=== PATIENT | male | born 1955 | race Caucasian/White ===

== ENCOUNTER 2016-08-27 08:13 | Emergency (ER) | payer MEDICARE, MEDICAID ==
[2016-08-27] MEDS ORDERED: ALBUTEROL/IPRATROPIUM 2.5/0.5 MG 3 ML/EACH DOSE ONE ×2 (08:40→09:42)
[2016-08-27] MEDS ORDERED: AZITHROMYCIN 250 MG TABLET ONE (08:57)
[2016-08-27] MEDS ORDERED: DEXAMETHASONE SOD PHOS 10 MG/1 ML VIAL ONE (08:58)
[2016-08-27 09:09] LABS: ABSOLUTE NEUTROPHIL COUNT 7.5 K/mm3 (1.8-7.7); BASO # 0.1 K/mm3 (0.0-0.2); BASO % 0.6 % (0.2-1.0); EOS # 0.3 (0.0-0.5); EOS % 2.8 % (0.9-2.9); HEMATOCRIT 43.9 % (32.0-52.0); HEMOGLOBIN 14.2 gm/l (14.0-18.0); IMM NEUT% 0.3 % (0-1); LYMPH % 18.6 % (15-45); MEAN CELL VOLUME 90.9 fl (80.0-94.0); MEAN CORPUSCULAR HEMOGLOBIN 29.4 pg (27.0-31.0); MEAN CORPUSCULAR HGB CONC 32.3 g/dl (33.0-37.0); MEAN PLATELET VOLUME 9.5 fl (7.4-10.4); MONO # 0.9 (0.0-0.8); MONO % 8.1 % (4-12); NEUT % 69.6 % (43-75); PLATELET COUNT 244 K/mm3 (130-400); RED CELL DISTRIBUTION WIDTH 13.4 % (11.5-14.5)
--- NOTE | 2016-08-27 09:15 | RAD ---
Exam: Two-view chest COMPARISON: None INDICATION: Dyspnea for 3 days. COPD. Findings: PA and lateral views of the chest were obtained. Cardiac silhouette is mildly enlarged. There is diffuse prominence of the of the bronchovascular markings, however there is no pulmonary edema, focal airspace disease or pleural effusion. There is a compression fracture at T9 which is is of uncertain chronicity and lack of comparisons but this is presumably chronic. Bones chest wall otherwise unremarkable. IMPRESSION: Mild cardiomegaly and diffuse prominence of the bronchovascular markings, however no acute pulmonary process is identified.
[2016-08-27 09:18] LABS: CALCIUM 9.1 mg/dL (8.6-10.3)
[2016-08-27] MEDS ORDERED: IPRATROPIUM BROMIDE 0.5 MG/2.5 ML DOSE ONE (10:24)
[2016-08-27] MEDS ORDERED: ALBUTEROL SULFATE 5MG/ML INHALANT 20 ML BOT ONE (10:24)
== END 2016-08-27 12:01 | disposition home or self-care (01) ==
LOC: ED 08:13
DX: J44.1 Chronic obstructive pulmonary disease with (acute) exacerbation (principal); E11.9 Type 2 diabetes mellitus without complications; I10 Essential (primary) hypertension; F17.210 Nicotine dependence, cigarettes, uncomplicated
CPT/HCPCS: 85025; 80048; 71020; 94640 ×2; 94644; 99284 ×2; 96374; 93005; J7645; J1100; A9270

== ENCOUNTER 2016-09-02 10:37 | Inpatient (IN) | payer MEDICARE, MEDICAID ==
[2016-09-02] MEDS ORDERED: ALBUTEROL/IPRATROPIUM 2.5/0.5 MG 3 ML/EACH DOSE ONE (10:59)
[2016-09-02 11:29] LABS: URINE APPEARANCE CLEAR; URINE BILIRUBIN NEGATIVE (NEGATIVE); URINE BLOOD 1+ (NEGATIVE); URINE COLOR YELLOW; URINE GLUCOSE (UA) NEGATIVE (NEGATIVE); URINE LEUKOCYTE ESTERASE NEGATIVE (NEGATIVE); URINE NITRITE NEGATIVE (NEGATIVE); URINE PROTEIN 3+ (NEGATIVE); URINE UROBILINOGEN NORMAL (0-1 mg/dl)
[2016-09-02 11:30] LABS: ABSOLUTE NEUTROPHIL COUNT 8.4 K/mm3 (1.8-7.7); BASO # 0.1 K/mm3 (0.0-0.2); BASO % 0.4 % (0.2-1.0); EOS # 0.2 (0.0-0.5); EOS % 1.3 % (0.9-2.9); HEMATOCRIT 43.4 % (32.0-52.0); HEMOGLOBIN 13.4 gm/l (14.0-18.0); IMM NEUT # 0.1 K/mm3 (0-0.2); IMM NEUT% 0.6 % (0-1); LYMPH # 2.1 (1.0-4.8); LYMPH % 17.7 % (15-45); MEAN CELL VOLUME 93.3 fl (80.0-94.0); MEAN CORPUSCULAR HEMOGLOBIN 28.8 pg (27.0-31.0); MEAN CORPUSCULAR HGB CONC 30.9 g/dl (33.0-37.0); MEAN PLATELET VOLUME 9.9 fl (7.4-10.4); MONO # 1.1 (0.0-0.8); MONO % 9.1 % (4-12); NEUT % 70.9 % (43-75); PLATELET COUNT 242 K/mm3 (130-400); RED CELL DISTRIBUTION WIDTH 13.8 % (11.5-14.5)
[2016-09-02 11:40] LABS: URINE BACTERIA TRACE; URINE EPITHELIAL CELLS FEW /hpf; URINE WBC RARE /hpf
[2016-09-02 11:52] LABS: ALB/GLOB RATIO 1.1 (>1.0); ALBUMIN 3.4 gm/dL (3.5-5.7); CALCIUM 8.4 mg/dL (8.6-10.3); MAGNESIUM 1.8 mg/dL (1.9-2.7)
--- NOTE | 2016-09-02 11:52 | RAD ---
Exam: 4 view right knee COMPARISON: None INDICATION: Pain post fall. FINDINGS: AP, lateral and bilateral AP oblique views of the right knee were obtained. Small to moderate joint effusion is present. Alignment is normal. No acute fracture is identified. There is mild tricompartment osteophyte formation, with mild medial compartment joint space narrowing. IMPRESSION: Small moderate joint effusion, however no acute osseous abnormality is identified within the right knee.
--- NOTE | 2016-09-02 12:35 | CT ---
Exam: CT head without contrast COMPARISON: None INDICATION: Ground-level fall versus syncope with loss of consciousness. TECHNIQUE: CT examination of the head was obtained without contrast. FINDINGS: There is no acute intracranial hemorrhage. There is no abnormal intra or extra-axial fluid collection. Focal sulcal prominence is identified within the posterior left frontal high convexity which may be related to remote infarct/encephalomalacia. Cortical reina-white matter differentiation is otherwise maintained and there is no mass effect or midline shift. There is a focal area of decreased density lateral to the left caudate head which could potentially reflect an old lacunar infarct. Similar finding is seen within the inferior basal ganglia on the right either remote infarct versus dilated perivascular space.. Ventricles are normal in size. There is no depressed skull fracture. No definite scalp contusion is seen although there is a subtle focus of increased density within the soft tissues posteriorly just to the right of midline. Minor mucosal thickening is seen within the paranasal sinuses without significant intrasinus fluid to suggest acute sinus pathology. Mastoid air cells are well aerated. IMPRESSION: No acute intracranial hemorrhage or CT evidence for acute ischemia. Query old left frontal cortical infarct and possible old lacunar infarcts. Findings discussed with Dr. Rizo 1229 hours 09/02/2016.
[2016-09-02] MEDS ORDERED: LACTATED RINGERS 1,000 ML ONE (12:37)
[2016-09-02] MEDS ORDERED: PREDNISONE 20 MG TABLET ONE (12:37)
[2016-09-02] MEDS ORDERED: MENTHOL/CETYLPYRD 1 EACH LOZENGE PO PRN (13:26)
[2016-09-02] MEDS ORDERED: SODIUM CHLORIDE 0.9% 100 ML IV PRN (13:26)
[2016-09-02] MEDS ORDERED: BISACODYL 10 MG SUP PR PRN (13:26)
[2016-09-02] MEDS ORDERED: BISACODYL 5 MG TABLET.EC PO PRN (13:26)
[2016-09-02] MEDS ORDERED: BLISTEX LIPSTICK 1 EACH TP PRN (13:26)
[2016-09-02] MEDS ORDERED: ACETAMINOPHEN 325 MG TABLET PO PRN (13:26)
[2016-09-02] MEDS ORDERED: MAGNESIUM HYDROXIDE 30 ML UDCUP PO PRN (13:26)
[2016-09-02 14:26] VITALS: BMI 38.2
[2016-09-02] MEDS ORDERED: LABETALOL HCL 5 MG/ML 20ML VIAL IV ONE (14:42)
[2016-09-02] MEDS ORDERED: ASPIRIN (UNCOATED) 325 MG TABLET PO ONE (14:43)
[2016-09-02] MEDS: Magnesium Oxide 400 MG TABLET PO SCH ×3 (15:18→21:39)
[2016-09-02] MEDS ORDERED: FUROSEMIDE 20 MG/2 ML VIAL IV ONE (15:28)
[2016-09-02] MEDS: ALBUTEROL/IPRATROPIUM 2.5/0.5 MG 3 ML/EACH DOSE NEB SCH ×2 (15:59→20:31)
[2016-09-02 16:54] LABS: A1C-GLYCOHEMOGLOBIN 0.5 g/dl; HEMOGLOBIN-GLYCO 13.3 g/dl
--- NOTE | 2016-09-02 17:34 | HP ---
JOSE ANDERS [id number] DATE OF ADMISSION: September 02, 2016 CHIEF COMPLAINT: Syncope. HISTORY OF PRESENT ILLNESS: The patient is a 61-year-old male with a past medical history significant for untreated hypertension, untreated diabetes, and chronic obstructive pulmonary disease which has been severe who was brought to the [facility] Emergency Department by ambulance today because of severe right knee pain and a syncopal episode which occurred last night. He lives in a mobile home on his nephew's property. The motor home is heated with a propane heater. This patient states the heater is designed with adequate ventilation and came with the mobile home. He is not concerned about carbon monoxide exposure. He reports last night he was warming himself in front of the heater and woke up on the ground. He was standing at the time, and when he woke up he was on the grand and he had severe right knee pain. He believes he was unconscious for a couple of hours. He has been unable to bear weight on his right knee due to the pain. He had an elevated troponin level and severe hypertension in the emergency department. He is a poor historian. He was referred to the hospitalist service for observation. REVIEW OF SYSTEMS: He denies any fevers or chills. He has had no upper respiratory symptoms but he has had chronic cough, chronic dyspnea and chronic wheezing. He was seen in the emergency department on August 27, 2016 for a chronic obstructive pulmonary disease exacerbation. He was given a single dose of Zithromax and Decadron and sent home. He recently established care with a provider in [place], but has not been prescribed any new medication. He reports his breathing is chronically bad and it has been a little bit worse in the last week. He denies any chest pain. He has had no change in his lower extremity edema. He denies any palpitations. He reports he has been having a lot of trouble sleeping. He gets short of breath at night. He has been having some frequent urination. He reports he has not slept for several days, and he wonders if he just fell asleep on his feet. He denies any nausea, vomiting, diarrhea or constipation. He has some chronic back pain. He has some chronic paresthesias in both feet which he attributes to degenerative disc disease. He reports he gets frequent urinary urgency and frequent urination whenever he gets a chronic obstructive pulmonary disease exacerbation, but it seems to get better when his breathing gets better. He denies any recent hospitalizations. PAST MEDICAL HISTORY: Is significant for: 1. Chronic essential hypertension, untreated. 2. He has adult onset diabetes, also untreated or just diet controlled. 3. He has chronic obstructive pulmonary disease and states he is on disability because of this. 4. He denies any other chronic medical problems. 5. He is a hostile and poor historian. PAST SURGICAL HISTORY: Negative for any prior surgeries. He reports he did have a fractured right femur in 1970 but did not require surgery. ALLERGIES: NO KNOWN DRUG ALLERGIES. CURRENT MEDICATIONS: Consist of: 1. Albuterol HFA inhaler which he takes two to four puffs every four hours as needed for wheezing. 2. He has a nebulizer at home but he has not been using it because he has no medicine for it. 3. He has been taking Advil 600 mg every four to six hours as needed for pain. FAMILY HISTORY: Unremarkable. SOCIAL HISTORY: He lives alone in a motor home on his nephew's property in [place]. He has been on disability because of chronic obstructive pulmonary disease for a number of years. He has a 40 pack-year history of smoking. He has been trying to cut down on his smoking recently. He has used some marijuana in the past but denies any other street drug use and drinks alcohol socially. He is single, and he has no children. His primary care provider he could not identify, but we were able to track it down. It is Clarke Archuleta.Javier in [place]. PHYSICAL EXAMINATION: VITAL SIGNS: Temperature is 98.5, pulse 93, blood pressure 201/139, respirations 20, oxygen saturation 94% on room air. Body mass index is 38. Weight is 120.9 kilograms. GENERAL: This is an obese male in no acute distress. HEENT: Exam is unremarkable. CHEST: Lungs reveal scattered wheezes. CARDIOVASCULAR: Exam reveals a regular rate and rhythm without a murmur. ABDOMEN: Obese, soft, nontender, nondistended with positive bowel sounds. EXTREMITIES: Show chronic venous stasis skin changes in both lower extremities. He has 1+ pitting edema in both lower extremities. He has diminished peripheral pulses in both feet estimated at 1+ to barely palpable. No ulcerations are identified. His skin is intact but his extremities are cold. DIAGNOSTIC IMAGING STUDIES: 1. He had a chest x-ray performed on August 27, 2016 showing some coarsened bronchovascular markings and mild cardiomegaly, but there was no pulmonary edema identified. 2. CT of the brain performed today shows no acute hemorrhage. There is possible old left frontal cortical infarct, possible old lacunar infarcts but no acute abnormalities are seen. 3. X-ray of the right knee shows a small to moderate joint effusion but no acute fracture is seen. LABORATORY STUDIES: His laboratory studies included a CBC with a white count of 11.8 and a hemoglobin of 13.4. Platelet count is 242,000. Chemistry profile this morning showed a sodium of 141, potassium 5.0, BUN 28, creatinine 1.4, glucose was 108, magnesium was slightly low at 1.8, total bilirubin 1.2, AST 27, ALT 27. Troponin I was elevated at 0.08, total CPK was normal at 93 but CK-MB was elevated at 9.6. A hemoglobin A1c is pending. A followup troponin and other cardiac enzymes are also pending. ELECTROCARDIOGRAM: A 12-lead electrocardiogram performed in the emergency department showed sinus rhythm with marked left axis deviation. There is also evidence of a right bundle branch block. No acute ST or T wave changes are seen. ASSESSMENT: 1. Patient has had a syncopal episode. 2. He has evidence of severe hypertension. 3. He has an acute chronic obstructive pulmonary disease exacerbation with possible bronchitis. 4. He has chronic glucose intolerance versus adult onset diabetes. 5. He has obesity which complicates his care. 6. He has mild hypomagnesemia which is being replaced. PLAN: 1. He is placed under observation on the medical/surgical unit. 2. We will get serial cardiac enzymes. 3. He will be on telemetry. 4. We will get an echocardiogram. 5. He was given labetalol times one and we will start him on Norvasc for blood pressure control. 6. Further treatment and recommendations will depend on his hospital course. cc: Aleena Archuleta
[2016-09-02] MEDS ORDERED: SODIUM CHLORIDE 0.9% FLUSH 10 ML ONE (19:07)
[2016-09-02] MEDS ORDERED: IV START KIT ONE (19:08)
[2016-09-02] MEDS: DOCUSATE SODIUM 100 MG CAPSULE PO SCH (21:39)
[2016-09-02] MEDS: AMLODIPINE BESYLATE 5 MG TABLET PO SCH (21:39)
[2016-09-02] MEDS: GUAIFENESIN 600 MG TABLET.DR PO SCH (21:40)
[2016-09-02] MEDS: ALBUTEROL NEB 2.5 MG/3 ML VIAL.NEB NEB PRN (23:59)
[2016-09-03] MEDS: ALBUTEROL NEB 2.5 MG/3 ML VIAL.NEB NEB PRN ×2 (02:10→06:09)
[2016-09-03 06:20] LABS: ABSOLUTE NEUTROPHIL COUNT 11.1 K/mm3 (1.8-7.7); BASO % 0.2 % (0.2-1.0); EOS % 0.1 % (0.9-2.9); HEMATOCRIT 41.5 % (32.0-52.0); IMM NEUT # 0.1 K/mm3 (0-0.2); IMM NEUT% 0.8 % (0-1); MEAN CELL VOLUME 91.8 fl (80.0-94.0); MEAN CORPUSCULAR HEMOGLOBIN 28.8 pg (27.0-31.0); MEAN CORPUSCULAR HGB CONC 31.3 g/dl (33.0-37.0); MEAN PLATELET VOLUME 10.3 fl (7.4-10.4); MONO % 6.8 % (4-12); NEUT % 78.1 % (43-75); PLATELET COUNT 225 K/mm3 (130-400); RED CELL DISTRIBUTION WIDTH 13.7 % (11.5-14.5)
[2016-09-03 06:24] LABS: CALCIUM 7.9 mg/dL (8.6-10.3); MAGNESIUM 1.8 mg/dL (1.9-2.7)
[2016-09-03] MEDS: ALBUTEROL/IPRATROPIUM 2.5/0.5 MG 3 ML/EACH DOSE NEB SCH ×4 (08:40→20:28)
[2016-09-03] MEDS ORDERED: PNEUMOCOCCAL 23-VAL P-SAC VAC 0.5 ML VIAL IM V ONE (09:00)
[2016-09-03] MEDS: GUAIFENESIN 600 MG TABLET.DR PO SCH ×2 (09:28→20:49)
[2016-09-03] MEDS: DOCUSATE SODIUM 100 MG CAPSULE PO SCH ×2 (09:28→20:49)
[2016-09-03] MEDS: Magnesium Oxide 400 MG TABLET PO SCH ×3 (09:28→20:49)
--- NOTE | 2016-09-03 10:26 | PDOC43 ---
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 Patient reports breathing a bit better, would like some more nebulizer tx. Notes urinary sx is not so much polyuria, but rather urgency, small voids. Knee is feeling better, walked some, but still notes limited activity tolerance. - Objective Vital Signs Temperature 98.0 F 09/03/16 08:00 Pulse Rate 101 09/03/16 08:40 Respiratory Rate 22 09/03/16 08:40 Blood Pressure 150/98 09/03/16 08:00 O2 Saturation by Pulse Oximetry 93 09/03/16 08:40 Oxygen Delivery Method Room Air Oxygen Flow Rate 0 Vital Signs Last 12 Hours Temp Pulse Resp BP Pulse Ox 09/03/16 08:40 101 22 93 09/03/16 08:00 98.0 F 96 20 150/98 92 09/03/16 06:09 91 18 95 09/03/16 02:10 91 22 95 09/03/16 00:35 16 09/03/16 00:20 89 16 174/96 95 09/03/16 00:02 91 14 172/90 95 09/03/16 00:00 85 28 95 09/02/16 23:44 97.8 F 90 22 94 Intake and Output 09/01/16 09/02/16 09/03/16 23:59 23:59 23:59 Intake Total 920 Output Total 825 Balance 95 Intake & Output 09/02/16 09/03/16 09/03/16 23:59 07:59 15:59 Intake Total 920 Output Total 825 Balance 95 Intake: PO Intake 720 IV Fluids 200 Output: Void 825 General: Other (sleeping, snoring, wakes easily. Centrally Obese (BMI 38.2),) HEENT: Atraumatic Lungs: Other (marked wheezing bilat, slow air movement bilat.) Cardiovascular: Regular Rate and Rhythm (distant, hard to hear) Abdomen: Soft, Normal Bowel Sounds, Non-Distended, Other (obese) Rectal Exam: Other (only base of prostate reached, not jung tender or boggy.) Extremities: Edema (1-2+ bilat.) Skin: Normal Color Neurological: Normal Speech Psych/Mental Status: Other (unusual affect.) Laboratory 09/03/16 05:30 09/03/16 05:30 09/03/16 09/02/16 05:30 15:05 RBC 4.52 L MCHC 31.3 L BUN 34 H Estimated GFR 41 L Calcium 7.9 L Magnesium 1.8 L CK-MB (CK-2) 9.0 H Troponin I 0.07 H 0.07 H B-Natriuretic Peptide 572 H Current Medications: Current meds reviewed in EMR. Active Medications Acetaminophen (Tylenol) 650 mg PO Q6H PRN PRN Reason: Pain or Temperature > 100.5 F Albuterol Sulfate (Ventolin Inhalation Solution (Dose)) 2.5 mg NEB Q4H PRN PRN Reason: Wheezing Last Admin: 09/03/16 06:09 Dose: 2.5 mg Albuterol/Ipratropium (Duoneb) 3 ml NEB QID PENDING SALE TO [facility] Last Admin: 09/03/16 08:40 Dose: 3 ml Amlodipine Besylate (Norvasc) 5 mg PO QPM PENDING SALE TO [facility] Last Admin: 09/02/16 21:39 Dose: 5 mg Benzocaine/Menthol (Cepacol) 1 each PO PRN PRN PRN Reason: Sore Throat Bisacodyl (Dulcolax) 10 mg SD DAILY PRN PRN Reason: Constipation Bisacodyl (Dulcolax) 5 mg PO DAILY PRN PRN Reason: Constipation Docusate Sodium (Colace) 100 mg PO BID PENDING SALE TO [facility] Last Admin: 09/03/16 09:28 Dose: 100 mg Guaifenesin (Mucinex) 600 mg PO BID PENDING SALE TO [facility] Last Admin: 09/03/16 09:28 Dose: 600 mg Sodium Chloride (Sodium Chloride 0.9%) 100 mls @ 25 mls/hr IV PRN PRN PRN Reason: Flush Magnesium Hydroxide (Milk Of Magnesia) 30 ml PO DAILY PRN PRN Reason: Constipation Magnesium Oxide (Magnesium Oxide) 800 mg PO TID PENDING SALE TO [facility] Last Admin: 09/03/16 09:28 Dose: 800 mg Petrolatum/Paraffin/Mineral Oil (Blistex) 1 each TP PRN PRN PRN Reason: Dry and/or chapped lips Sodium Chloride (Normal Saline 10ml Flush) 10 - 50 ml IV PRN PRN PRN Reason: IV Flush Last Admin: 09/02/16 15:37 Dose: 10 ml Sodium Chloride (Normal Saline 10ml Flush) 10 ml IV Q8HR SURYA Last Admin: 09/03/16 09:28 Dose: 10 ml - Problems: Assessment/Plan (1) Hypertensive urgency Status: AcuteAssessment/Plan: Selected Entries 09/02/16 09/02/16 09/02/16 13:26 16:30 19:51 Blood Pressure 201/139 181/109 157/102 09/03/16 09/03/16 09/03/16 00:02 00:20 08:00 Blood Pressure 172/90 174/96 150/98 BP improved, would not seek further aggressive BP lowering currently. Continue amlodipine. Starting Lasix for suspected CHF; Did get labetalol earlier. Suspect underlying essential HTN, but suspected COPD/hypoxia could play a role (2) Syncope Status: AcuteAssessment/Plan: Echo planned. Check CXR. Anticipate checking ambulation with PT/OT. (3) COPD (chronic obstructive pulmonary disease) Qualifiers: COPD type: unspecified COPD Qualifier Code: (J44.9) Chronic obstructive pulmonary disease, unspecified Status: ChronicAssessment/Plan: Marked wheezing bilat. Continue nebs. Anticipate add Bactrim to see if helpful for respiratory status Also try to address CHF, which may be playing a role as well. Await echo. (4) Knee effusion Qualifiers: Laterality: unspecified laterality Qualifier Code: (M25.469) Effusion, unspecified knee Status: AcuteAssessment/Plan: Patient reports feeling better, ambulating some. (5) HI (acute kidney injury) Status: SuspectedAssessment/Plan: Cr 1.4->1.7, 3+ protein; uncertain if acute and due to hypertensive urgency ( which would suggest hypertensive emergency) But seems more likely to be chronic, due to un/undertreated primary hypertension. Continue to monitor, avoid significant HTN. (6) Urinary urgency Status: SuspectedAssessment/Plan: Patient reports having low volumes, but urgency on wakening, difficulty getting to bathroom. Prostate exam difficult; will try to address possibility of a low grade prostatitis, but also improve respiratory status, ambulatory status. UA unrem except for protein 3+. (7) CHF (congestive heart failure) Qualifiers: Congestive heart failure type: unspecified congestive heart failure type Congestive heart failure chronicity: unspecified congestive heart failure chronicity Qualifier Code: (I50.9) Heart failure, unspecified Status: SuspectedAssessment/Plan: Pt with wheezing, elevated BNP. Check CXR, echo, hope to clarify whether systolic or diastolic, and determine duration (chronic vs acute) Lasix seemed helpful. Will continue on PO. Hold on ZAN/ARB at this time while watching creatinine (increased today). Consider Coreg/other beta tawana. (8) Sleep apnea Qualifiers: Sleep apnea type: unspecified type Qualifier Code: (G47.30) Sleep apnea , unspecified Status: SuspectedAssessment/Plan: Anticipate check continuous oximetry. VTE Prophylaxis: Mechanical Disposition: monitor, reassess in am, consider for return to home with family (mobile home on brother's property)
--- NOTE | 2016-09-03 11:20 | RAD ---
09/03/2016 11:17 AM CHEST-AP BEDSIDE History: Cough and dyspnea Comparison: 08/27/2016 Findings: Single AP view of the chest is obtained. The lungs are clear with out effusion or pneumothorax. The previously seen coarseness to the interstitium is not as well-visualized on today's study. The cardiomediastinal silhouette enlarged but stable. The osseous structures are intact.. EKG leads overlie the chest. IMPRESSION: Continued cardiomegaly though prominence to the lung markings has decreased in comparison to prior exam.
[2016-09-03] MEDS: FUROSEMIDE 20 MG TABLET PO SCH (13:46)
[2016-09-03] MEDS: POTASSIUM CHLORIDE 8 MEQ TABLET.DR PO SCH (13:46)
[2016-09-03] MEDS: SULFAMETHOXAZOLE 800 MG/TRIMETHOPRIM 160 MG TABLET PO SCH ×2 (13:46→20:50)
--- NOTE | 2016-09-03 16:24 | US ---
Exam: Bilateral Carotid Artery Ultrasound Comparison: None. History: Syncope. Carotid duplex criteria: Measurement of carotid stenosis is based on velocity parameters that correlate the residual internal carotid diameter with [place] Symptomatic Carotid Endarterectomy Trial (NASCET)- based stenosis levels. Grayscale and Doppler interrogation was utilized. Findings: Examination was limited due to patient's breathing intolerance. No significant plaque formation is seen on either side. Peak systolic velocities are as follows, in cm/sec: RIGHT: Common carotid artery proximal/mid: 63 Common carotid artery distally: 57 Bulb: 49 Proximal internal carotid artery: 34 Mid internal carotid artery: 30 Distal internal carotid artery: 26 External carotid artery: 65 ICA/CCA ratio: 0.6. Antegrade right vertebral artery flow is present. LEFT: Common carotid artery proximal/mid: 52 Common carotid artery distally: 50 Bulb: 45 Proximal internal carotid artery: 114 Mid internal carotid artery: 99 Distal internal carotid artery: 88 External carotid artery: 52 ICA/CCA ratio: 2.3. Antegrade left vertebral artery flow is present. Impression: 1. No evidence of hemodynamically significant stenosis within either carotid artery. 2. No significant plaque formation within either carotid artery. 3. Antegrade flow within the vertebral arteries.
[2016-09-03] MEDS: AMLODIPINE BESYLATE 5 MG TABLET PO SCH (20:50)
[2016-09-04] MEDS: ALBUTEROL NEB 2.5 MG/3 ML VIAL.NEB NEB PRN ×2 (00:32→03:58)
--- NOTE | 2016-09-04 01:01 | DS ---
JOSE ANDERS [id number] DATE OF ADMISSION: 09/02/2016 DATE OF DISCHARGE: 09/04/2016 DISCHARGE DIAGNOSES: 1. Reported syncope, etiology not clear. 2. Severe hypertension, with potential evidence of end organ damage, with 3+ protein noted and a creatinine of 1.7 and BNP of 572. 3. Reported diet-controlled diabetes mellitus, with an A1C of 5.7. 4. COPD, on disability. 5. Knee effusion, improved. 6. CT evidence of suspected old left frontal cortical infarct and possible old lacunar infarcts. 7. Suspected acute on chronic kidney disease, with a creatinine of 1.7 and 3+ proteinuria. 8. History of urinary urgency, with difficulty getting to the bathroom. 9. Combined systolic and diastolic congestive heart failure, with cor pulmonale. LVEF 40%, RVSP 60-65 mmHg, mild RV dilatation. REASON FOR ADMISSION: The patient is a 61-year-old male who was brought to [facility] by ambulance because of severe right knee pain and reported episode of syncope. He lives in a mobile home on his nephew's property. He had reported he was warming himself in front of the heater and then later woke-up on the ground, and felt that he hurt his right knee. He does not know how long he may have been unconscious. He was noted to have a marked elevated systolic blood pressure and a borderline elevated troponin level at 0.08, with a normal CK of 86. His white blood cell count was 11.6, hemoglobin 13.4 and platelets 242. Chemistry profile; sodium 141, potassium 5.0, BUN of 28, creatinine 1.4, glucose 108, magnesium 1.8 and bilirubin 1.2. Liver enzymes normal. Urinalysis; specific gravity 1.020, 3+ protein, 1-2 red cells, rare white cells and few epithelial cells. Imaging performed of the brain showed no acute intracranial hemorrhage or CT evidence of acute ischemia, old left frontal cortical infarct and possible old lacunar infarcts. A chest x-ray showed cardiomegaly, with some decrease in lung markings compared to 08/27/2016. A knee x-ray showed small moderate joint effusion. No acute osseous abnormality in the right knee. On the afternoon of 09/03/2016, the patient was upset because the nurse had talked to him about what he perceived to be going to the bathroom, and he wished to leave against medical advice. This was discussed with him, and although he initially had intended to leave, he chose to stay, and so at this time the discharge was cancelled. His troponins have remained normal. CK-MB mildly elevated at 9.6. CK of 93. A1C was 5.7. His follow-up creatinine edged-up from 1.4 to 1.8, with a potassium increased to 5.1; blood sugars remained stable at 117. He did receive some magnesium for his low magnesium. He had marked elevation of blood pressure on admission as high as 201/139 and received amlodipine, and had a fairly good response to this, and by the afternoon it was 131/101. He also received Lasix and potassium as well. He was started on Bactrim DS for consideration of a low-grade prostatitis, might be playing a factor in his urinary urgency and it could also potentially help his COPD. By morning 09/04/16, patient reported feeling much better than on admission, and was amenable to returning home. Patient's echocardiogram 09/03/16 showed: Mild to Moderate LV dilatation, LVEF 40%, moderate left atrial enlargement, mild to moderate mitral valve regurgitation, RVSP 60-65 mmHg, mild RV dilatation, Grade 2 diastolic dysfunction. Normal aortic root, no pericardial effusion. DISCHARGE MEDICATIONS: Current estimated discharge medications were going to be: 1. Albuterol two puffs inhaled every three hours as needed. 2. Amlodipine 5 mg by mouth every P.M. 3. Lasix 20 mg daily. 4. Potassium chloride 8 mEq by mouth daily. 5. Bactrim DS one by mouth twice a day times two weeks. DISCHARGE FOLLOW-UP: Follow-up was to be with his primary care doctor who he has difficulty remembering, but appears to be Alexandra Dutton in [place], a nurse practitioner. He is to follow up with Alexandra Dutton regardin. CHF 2. Respiratory status 3. Renal status, including potassium 4. Blood pressure 5. Urinary difficulty and incontinence DISCHARGE DIET: Recommended to be a cardiac diet.
[2016-09-04 05:54] LABS: ABSOLUTE NEUTROPHIL COUNT 8.8 K/mm3 (1.8-7.7); BASO # 0.1 K/mm3 (0.0-0.2); BASO % 0.5 % (0.2-1.0); EOS # 0.3 (0.0-0.5); EOS % 2.6 % (0.9-2.9); HEMATOCRIT 42.5 % (32.0-52.0); HEMOGLOBIN 13.2 gm/l (14.0-18.0); IMM NEUT # 0.1 K/mm3 (0-0.2); IMM NEUT% 0.6 % (0-1); LYMPH # 2.1 (1.0-4.8); LYMPH % 16.5 % (15-45); MEAN CELL VOLUME 93.2 fl (80.0-94.0); MEAN CORPUSCULAR HEMOGLOBIN 28.9 pg (27.0-31.0); MEAN CORPUSCULAR HGB CONC 31.1 g/dl (33.0-37.0); MEAN PLATELET VOLUME 9.9 fl (7.4-10.4); MONO # 1.2 (0.0-0.8); MONO % 9.4 % (4-12); NEUT % 70.4 % (43-75); PLATELET COUNT 217 K/mm3 (130-400); RED CELL DISTRIBUTION WIDTH 14.1 % (11.5-14.5)
[2016-09-04 06:17] LABS: ALBUMIN 3.4 gm/dL (3.5-5.7)
[2016-09-04] MEDS: ALBUTEROL/IPRATROPIUM 2.5/0.5 MG 3 ML/EACH DOSE NEB SCH ×2 (07:37→12:00)
[2016-09-04] MEDS: POTASSIUM CHLORIDE 8 MEQ TABLET.DR PO SCH (08:39)
[2016-09-04] MEDS: SULFAMETHOXAZOLE 800 MG/TRIMETHOPRIM 160 MG TABLET PO SCH (08:39)
[2016-09-04] MEDS: GUAIFENESIN 600 MG TABLET.DR PO SCH (08:39)
[2016-09-04] MEDS: Magnesium Oxide 400 MG TABLET PO SCH (08:39)
[2016-09-04] MEDS: DOCUSATE SODIUM 100 MG CAPSULE PO SCH (08:39)
[2016-09-04] MEDS: FUROSEMIDE 20 MG TABLET PO SCH (08:39)
--- NOTE | 2016-09-04 11:12 | PDOC43 ---
- Subjective Chief Complaint: syncope, elevated BP Patient reports breathing doing much better. Slept ok, and noted only one accident yesterday. Feeling better. No new c/o. - Objective Vital Signs Temperature 97.9 F 09/04/16 07:00 Pulse Rate 90 09/04/16 07:35 Respiratory Rate 24 09/04/16 07:35 Blood Pressure 143/87 09/04/16 07:00 O2 Saturation by Pulse Oximetry 93 09/04/16 07:35 Oxygen Delivery Method Room Air Oxygen Flow Rate 0 Vital Signs Last 12 Hours Temp Pulse Resp BP Pulse Ox 09/04/16 07:35 90 24 93 09/04/16 07:00 97.9 F 99 21 143/87 93 09/04/16 03:58 92 20 94 09/04/16 03:00 98.0 F 89 22 132/88 95 09/04/16 01:00 22 09/04/16 00:32 94 28 96 09/03/16 23:10 98.0 F 92 132/90 94 09/03/16 23:05 98.2 F 60 18 118/60 96 Intake and Output 09/02/16 09/03/16 09/04/16 23:59 23:59 23:59 Intake Total 860 2820 Output Total 1000 1550 Balance -140 1270 General: Alert, Cooperative, Other (seems to be feeling better today) Lungs: No Clear to Auscultation Bilaterally (wheezing noted bilat, but improved , air movement better.) Cardiovascular: Regular Rate and Rhythm Abdomen: Soft, Normal Bowel Sounds, No Tenderness Extremities: Edema (2+ edema LE bilat.) Neurological: Normal Speech Psych/Mental Status: Normal Affect (appears to be feeling a bit better, but still sl irritable on waking.) Laboratory 09/04/16 05:30 09/04/16 05:30 09/04/16 09/03/16 05:30 20:49 RBC 4.56 L MCHC 31.1 L BUN 36 H Estimated GFR 39 L POC Capillary Glucose 124 H Calcium 8.0 L Total Bilirubin 1.1 H Albumin 3.4 L Current Medications: Current meds reviewed in EMR. Active Medications Acetaminophen (Tylenol) 650 mg PO Q6H PRN PRN Reason: Pain or Temperature > 100.5 F Albuterol Sulfate (Ventolin Inhalation Solution (Dose)) 2.5 mg NEB Q4H PRN PRN Reason: Wheezing Last Admin: 09/04/16 03:58 Dose: 2.5 mg Albuterol/Ipratropium (Duoneb) 3 ml NEB 08,12,16,20 [facility] Last Admin: 09/04/16 07:37 Dose: 3 ml Amlodipine Besylate (Norvasc) 5 mg PO QPM [facility] Last Admin: 09/03/16 20:50 Dose: 5 mg Benzocaine/Menthol (Cepacol) 1 each PO PRN PRN PRN Reason: Sore Throat Bisacodyl (Dulcolax) 10 mg W[place] DAILY PRN PRN Reason: Constipation Bisacodyl (Dulcolax) 5 mg PO DAILY PRN PRN Reason: Constipation Docusate Sodium (Colace) 100 mg PO BID [facility] Last Admin: 09/04/16 08:39 Dose: 100 mg Furosemide (Lasix) 20 mg PO DAILY [facility] Last Admin: 09/04/16 08:39 Dose: 20 mg Guaifenesin (Mucinex) 600 mg PO BID [facility] Last Admin: 09/04/16 08:39 Dose: 600 mg Sodium Chloride (Sodium Chloride 0.9%) 100 mls @ 25 mls/hr IV PRN PRN PRN Reason: Flush Magnesium Hydroxide (Milk Of Magnesia) 30 ml PO DAILY PRN PRN Reason: Constipation Magnesium Oxide (Magnesium Oxide) 800 mg PO TID [facility] Last Admin: 09/04/16 08:39 Dose: 800 mg Petrolatum/Paraffin/Mineral Oil (Blistex) 1 each TP PRN PRN PRN Reason: Dry and/or chapped lips Potassium Chloride (Klor-Con) 8 meq PO DAILY [facility] Last Admin: 09/04/16 08:39 Dose: 8 meq Sodium Chloride (Normal Saline 10ml Flush) 10 - 50 ml IV PRN PRN PRN Reason: IV Flush Last Admin: 09/02/16 15:37 Dose: 10 ml Sodium Chloride (Normal Saline 10ml Flush) 10 ml IV Q8HR [facility] Last Admin: 09/04/16 08:39 Dose: 10 ml Trimethoprim/Sulfamethoxazole (Septra Ds) 1 each PO BID [facility] Last Admin: 09/04/16 08:39 Dose: 1 each - Problems: Assessment/Plan (1) Hypertensive urgency Status: AcuteAssessment/Plan: BP improved, would not seek further aggressive BP lowering currently. Continue current regimen Started Lasix for suspected CHF; Did get labetalol earlier. Suspect underlying untreated essential HTN, but suspected COPD/hypoxia could also play a role (2) Syncope Qualifiers: Syncope type: unspecified Qualifier Code: (R55) Syncope and collapse Status: AcuteAssessment/Plan: Echo did not show significant valvular dz. Carotids unrem. Anticipate checking ambulation with PT/OT. (3) COPD (chronic obstructive pulmonary disease) Qualifiers: COPD type: unspecified COPD Qualifier Code: (J44.9) Chronic obstructive pulmonary disease, unspecified Status: ChronicAssessment/Plan: with pulmonary HTN, cor pulmonale Marked wheezing bilat. Continue nebs. Added Bactrim to see if helpful for respiratory status Also addressing CHF, which may be playing a role as well. (4) Knee effusion Qualifiers: Laterality: unspecified laterality Qualifier Code: (M25.469) Effusion, unspecified knee Status: AcuteAssessment/Plan: Patient reports feeling better, ambulating some. (5) HI (acute kidney injury) Status: SuspectedAssessment/Plan: Cr 1.4->1.7, 3+ protein; uncertain if acute and due to hypertensive urgency ( which would suggest hypertensive emergency) But seems more likely to be chronic, due to un/undertreated primary hypertension. Continue to monitor, avoid significant HTN, avoid hypotension. Mild hyperkalemia noted today, but was lower previously. Anticipate continue on low dose (8 mEq), while on Lasix. REquest pt follow up lab tests in the next week. (6) Urinary urgency Status: SuspectedAssessment/Plan: Patient reports having low volumes, but urgency on wakening, difficulty getting to bathroom. Prostate exam difficult; will try to address possibility of a low grade prostatitis, but also improve respiratory status, ambulatory status. UA unrem except for protein 3+. Bactrim started, will see if helpful (7) CHF (congestive heart failure) Qualifiers: Congestive heart failure type: combined Congestive heart failure chronicity: acute on chronic Qualifier Code: (I50.43) Acute on chronic combined systolic (congestive) and diastolic (congestive) heart failure Status: SuspectedAssessment/Plan: Pt with wheezing, elevated BNP. Appears systolic (LVEF 40%) and diastolic, suspect acute on chronic. Lasix seemed helpful. Will continue on PO. Hold on ZAN/ARB at this time while watching creatinine (increased). Consider Coreg/other beta tawana. (8) Sleep apnea Qualifiers: Sleep apnea type: unspecified type Qualifier Code: (G47.30) Sleep apnea , unspecified Status: SuspectedAssessment/Plan: oximetry did not show significant hypoxia at this time. VTE Prophylaxis: Mechanical Disposition: anticipate return to home with family (mobile home on brother's property)
[2016-09-04 11:23] VITALS: BP 135/88
== END 2016-09-04 12:15 | disposition home or self-care (01) | DRG 292 ==
LOC: ED 10:37 → INTOOBSV 13:17 → MS 13:17 → OBSVTOIN 09-03 11:02
PROVIDERS: ADMIT Family Medicine; ATTEND Family Medicine
DX: I13.0 Hypertensive heart and chronic kidney disease with heart failure and stage 1 through stage 4 chronic kidney disease, or unspecified chronic kidney disease (principal); E66.2 Morbid (severe) obesity with alveolar hypoventilation; J44.1 Chronic obstructive pulmonary disease with (acute) exacerbation; I50.30 Unspecified diastolic (congestive) heart failure; M25.469 Effusion, unspecified knee; E11.9 Type 2 diabetes mellitus without complications; Z68.38 Body mass index [BMI] 38.0-38.9, adult; E83.42 Hypomagnesemia; N18.9 Chronic kidney disease, unspecified; E11.22 Type 2 diabetes mellitus with diabetic chronic kidney disease; R39.15 Urgency of urination

== ENCOUNTER 2016-10-25 08:33 | Inpatient (IN) | payer MEDICARE, MEDICAID ==
[2016-10-25] MEDS ORDERED: METHYLPRED SOD SUCCINATE 125 MG VIAL ONE (08:41)
[2016-10-25] MEDS ORDERED: ALBUTEROL/IPRATROPIUM 2.5/0.5 MG 3 ML/EACH DOSE ONE (08:41)
[2016-10-25 08:52] LABS: VENOUS BLOOD GAS BASE EXCESS -1.1 mmol/L (-2.0-2.0); VENOUS BLOOD GAS HCO3 27.8 mmol/L (22.0-27.0)
[2016-10-25] MEDS ORDERED: ALBUTEROL NEB 2.5 MG/3 ML VIAL.NEB NEB ONE ×2 (08:58→13:46)
[2016-10-25 09:03] LABS: ABSOLUTE NEUTROPHIL COUNT 5.8 K/mm3 (1.8-7.7); BASO % 0.5 % (0.2-1.0); EOS # 0.2 (0.0-0.5); EOS % 2.4 % (0.9-2.9); HEMATOCRIT 51.8 % (32.0-52.0); HEMOGLOBIN 16.7 gm/l (14.0-18.0); IMM NEUT% 0.3 % (0-1); MEAN CELL VOLUME 86.2 fl (80.0-94.0); MEAN CORPUSCULAR HEMOGLOBIN 27.8 pg (27.0-31.0); MEAN CORPUSCULAR HGB CONC 32.2 g/dl (33.0-37.0); MEAN PLATELET VOLUME 9.9 fl (7.4-10.4); MONO # 0.9 (0.0-0.8); MONO % 9.8 % (4-12); PLATELET COUNT 232 K/mm3 (130-400); RED CELL DISTRIBUTION WIDTH 14.5 % (11.5-14.5)
[2016-10-25 09:17] LABS: ALB/GLOB RATIO 0.9 (>1.0); ALBUMIN 3.7 gm/dL (3.5-5.7); CALCIUM 8.7 mg/dL (8.6-10.3)
--- NOTE | 2016-10-25 10:06 | RAD ---
CHEST-AP BEDSIDE HISTORY: Worsening dyspnea and cough. COMPARISONS: 09/03/2016. FINDINGS: A single AP view of the chest was performed demonstrating normal-appearing soft tissue and bony structures. The heart size is stable. There is mild central vascular prominence of the appearance is similar to that seen on prior exam. No gross consolidation, effusion or pneumothorax is seen. The hilar and mediastinal structures are intact. IMPRESSION: 1. Stable borderline cardiomegaly with mild central vascular prominence.
[2016-10-25 11:12] LABS: CKMB 1.4 ng/ml (<4.3); TROPONIN I < 0.05 ng/ml (<0.05)
[2016-10-25 12:03] VITALS: BMI 38.8
[2016-10-25] MEDS ORDERED: BISACODYL 5 MG TABLET.EC PO PRN (12:30)
[2016-10-25] MEDS ORDERED: SODIUM CHLORIDE 0.9% 100 ML IV PRN (12:30)
[2016-10-25] MEDS ORDERED: ACETAMINOPHEN 325 MG TABLET PO PRN (12:30)
[2016-10-25] MEDS ORDERED: BISACODYL 10 MG SUP PR PRN (12:30)
[2016-10-25] MEDS ORDERED: MAGNESIUM HYDROXIDE 30 ML UDCUP PO PRN (12:30)
[2016-10-25] MEDS ORDERED: MENTHOL/CETYLPYRD 1 EACH LOZENGE PO PRN (12:30)
[2016-10-25] MEDS ORDERED: BLISTEX LIPSTICK 1 EACH TP PRN (12:30)
[2016-10-25] MEDS ORDERED: INSULIN ASPART (DOSE) 100 UNITS/1 ML SUB-Q PRN (12:38)
[2016-10-25] MEDS ORDERED: PUMP TUBING ONE (13:35)
[2016-10-25] MEDS: SODIUM CHLORIDE 0.9% 1,000 ML IV SCH ×2 (13:40→22:43)
[2016-10-25] MEDS ORDERED: ALBUTEROL NEB 2.5 MG/3 ML VIAL.NEB NEB SCH (14:00)
[2016-10-25 14:52] LABS: VENOUS BLOOD GAS BASE EXCESS -1.4 mmol/L (-2.0-2.0); VENOUS BLOOD GAS HCO3 24.6 mmol/L (22.0-27.0)
--- NOTE | 2016-10-25 15:02 | HP ---
JOSE ANDERS : 1955 DATE OF ADMISSION: October 25, 2016 CHIEF COMPLAINT: Shortness of breath. HISTORY OF PRESENT ILLNESS: Patient has a known history of chronic obstructive pulmonary disease and is a current smoker. He says he only smokes three or four cigarettes a day. However, over the last two to three days, he has had increasing shortness of breath and cough. There has been no increase in sputum production. As this progressed to where he had difficulty breathing this morning, he proceeded to the emergency department. In the emergency department he was noted to be tachypneic and tachycardic with wheezing. He was provided with nebulizer treatments in the emergency room and a dose of steroids. However, after two doses of albuterol, he became diaphoretic with increased tachypnea, and he was placed on BiPAP. With BiPAP therapy his tachycardia improved along with his tachypnea, and he became more comfortable with his breathing. Patient is being admitted to the hospital for ongoing chronic obstructive pulmonary disease exacerbation management. Patient does have an increasing cough but no increase in sputum production. He does have wheezing. He did not call his primary care physician because he felt that she would not be able to see him or Thursday when his symptoms worsened. He says he has been taking all of his medications as prescribed. He has not had any cold symptoms but he has been around people with kids that have colds. He denies any fever, chills, congestion, or sore throat. He did have an ear infection two weeks prior to this, however. He has been in the hospital on BiPAP before, most recently a month ago. He has never been intubated. REVIEW OF SYSTEMS: GENERAL: No fevers, chill. EENT: No throat pain, congestion, sore throat. Ear infection two weeks ago. CARDIOVASCULAR: He has chest pain from breathing heavy. No palpitations. RESPIRATORY: He has an increased rate of breathing, increased cough, wheezing. No sputum production. ABDOMEN: Sore from breathing. No nausea, vomiting or abdominal pain. GENITOURINARY: No difficulties with urination. MUSCULOSKELETAL: Muscle pain from breathing hard. NEUROLOGIC: No lightheadedness, dizziness. He does have numbness in his feet. ALLERGIES: NO KNOWN DRUG ALLERGIES. PAST MEDICAL HISTORY: 1. He has chronic benign essential hypertension. 2. Adult onset diabetes, diet controlled. 3. Chronic obstructive pulmonary disease. He is a smoker. 4. He has neuropathy. PAST SURGICAL HISTORY: None. MEDICATIONS: 1. Amlodipine. 2. Albuterol. 3. Klor-Con. 4. Lasix. 5. Combivent. FAMILY HISTORY: Unremarkable. SOCIAL HISTORY: He lives in a motor home on his nephew's property. A 40 pack-year history of smoking. Occasional marijuana. Drinks alcohol socially. Single, no children. PHYSICAL EXAM: VITAL SIGNS: Patient's pulse rate is 95. He is on BiPAP with current FIO2 of 22%, oxygen saturation of 95. His blood pressure is 129/82. He is slightly tachypneic around 25 to 28 breaths per minute. Temperature of 98.2. GENERAL: He is alert and oriented, mild respiratory distress. On Bi-PAP HEENT: Normocephalic, atraumatic. No tenderness to palpation. His mucous membranes are slightly dry. Pupils are equal, round, and reactive. His extraocular muscles are intact. No scleral icterus or conjunctival injection. NECK: Supple. Trachea midline. CARDIOVASCULAR: Regular, positive S1, S2. He has palpable pulses radially. RESPIRATORY: Diffuse expiratory wheezing. He is using his accessory muscles and some grunting. Slight tachypnea. 2-3 word sentences ABDOMEN: Soft, nontender, no distension or rebound. MUSCULOSKELETAL: He is moving all extremities without difficulty. They are nontender. NEUROLOGIC: He is alert and oriented. LABORATORIES: White blood cell count 8.9, hemoglobin 16.7 with hematocrit of 51.8, platelet count of 232. VBG pH is 7.265, O2 sat is 64.6, PCO2 of 62.6, PO2 of 36.4, bicarbonate 27.8. Sodium 135, potassium 3.8, chloride 100, carbon dioxide 28, BUN 26, creatinine 1.5, glucose of 104. DIAGNOSTIC IMAGIN. Chest x-ray was obtained an interpreted as stable borderline cardiomegaly with a mild central vascular prominence. 2. With recent hospitalization, an echocardiogram was obtained on September 05, 2015, which was interpreted as an ejection fraction of 40%, mild to moderate mitral valve regurgitation, elevated right ventricle systolic pressure and dilation, grade 2 diastolic dysfunction with impaired relaxation. ASSESSMENT: This is a 61-year-old male with a 40 pack-year history of smoking and recent hospitalization in August found to be in acute respiratory failure improving on BiPAP. PLAN: 1. Chronic obstructive pulmonary disease exacerbation, improving on BiPAP. He received a dose of solumedrol in the emergency room. We will continue steroids. He will receive DuoNebs and albuterol. We will start Advair. 2. Acute respiratory failure. We will keep him on BiPAP and will wean him off oxygen as tolerated. 3. Hypertension. We will monitor and continue his home medications. 4. Diabetes. We will put him on a diabetic diet and provide sliding scale as needed. 5. Chronic kidney disease stage 3. His baseline creatinine from prior hospitalization show a creatinine of at best 1.3, at the highest level 1.8. It is currently 1.7 and we will monitor. 6. For his neuropathy, we will continue his amitriptyline. 7. In review of CODE STATUS, he says he wants basic done, but he does not want to be on a ventilator or on life support mechanisms.
[2016-10-25] MEDS: ALBUTEROL/IPRATROPIUM 2.5/0.5 MG 3 ML/EACH DOSE NEB SCH ×2 (15:04→19:36)
[2016-10-25] MEDS: FLUTICASONE/SALMETEROL 500/50 14 PUFFS/DISK IH SCH ×2 (15:43→20:47)
[2016-10-25] MEDS: ALBUTEROL NEB 2.5 MG/3 ML VIAL.NEB NEB SCH ×4 (16:55→23:12)
[2016-10-25] MEDS: AMLODIPINE BESYLATE 5 MG TABLET PO SCH (19:48)
[2016-10-25] MEDS: DOCUSATE SODIUM 100 MG CAPSULE PO SCH (20:28)
[2016-10-25] MEDS ORDERED: AMITRIPTYLINE HCL 25 MG TABLET PO SCH (21:00)
[2016-10-26] MEDS: ALBUTEROL NEB 2.5 MG/3 ML VIAL.NEB NEB SCH ×10 (01:21→23:47)
[2016-10-26] MEDS: SODIUM CHLORIDE 0.9% 1,000 ML IV SCH ×5 (03:47→23:43)
[2016-10-26 06:08] LABS: ABSOLUTE NEUTROPHIL COUNT 8.9 K/mm3 (1.8-7.7); BASO % 0.2 % (0.2-1.0); HEMOGLOBIN 14.6 gm/l (14.0-18.0); IMM NEUT # 0.1 K/mm3 (0-0.2); IMM NEUT% 0.6 % (0-1); LYMPH # 1.3 (1.0-4.8); LYMPH % 11.7 % (15-45); MEAN CELL VOLUME 85.6 fl (80.0-94.0); MEAN CORPUSCULAR HEMOGLOBIN 27.8 pg (27.0-31.0); MEAN CORPUSCULAR HGB CONC 32.4 g/dl (33.0-37.0); MEAN PLATELET VOLUME 9.8 fl (7.4-10.4); MONO # 0.6 (0.0-0.8); MONO % 5.6 % (4-12); NEUT % 81.9 % (43-75); PLATELET COUNT 207 K/mm3 (130-400); RED CELL DISTRIBUTION WIDTH 14.6 % (11.5-14.5)
[2016-10-26 06:22] LABS: CALCIUM 8.1 mg/dL (8.6-10.3)
--- NOTE | 2016-10-26 07:10 | PDOC43 ---
- Subjective Chief Complaint: shortness of breath Patient awake and alert, crabby. He has chest pain from his breathing. Sitting up edge of bed, no other complaints Subjective: Reports Pain Tolerable, Reports Tolerating Diet Well, Reports Urinating Without Difficulty, Reports Shortness of Breath, Reports Cough, Reports Chest Pain, Denies Adequate Oral Intake, Denies Abdominal Pain, Denies Nausea, Denies Vomiting - Objective Vital Signs Temperature 98 F 10/26/16 02:51 Pulse Rate 104 10/26/16 03:33 Respiratory Rate 24 10/26/16 03:33 Blood Pressure 156/106 10/26/16 02:51 O2 Saturation by Pulse Oximetry 92 10/26/16 03:33 Oxygen Delivery Method Room Air Oxygen Flow Rate 0 Intake and Output 10/24/16 10/25/16 10/26/16 23:59 23:59 23:59 Intake Total 1324 2228 Output Total 825 925 Balance 499 1303 General: Alert, Oriented x3, Cooperative, Other (morbidly obese), No Acute Distress HEENT: Atraumatic, Mucous membr. moist/pink Lungs: Normal Air Movement, Other (expiratory wheeze, transmitted upper respiratory noise) Cardiovascular: Regular Rate and Rhythm, Normal S1, Normal S2 Abdomen: Soft, Rebounding, Distention, No Rigid, No Tenderness Extremities: Edema, No Cyanosis, No Tenderness Neurological: Normal Speech Psych/Mental Status: Normal Mood Laboratory 10/26/16 05:17 10/26/16 05:17 10/26/16 10/25/16 10/25/16 05:17 19:13 19:11 MCHC 32.4 L RDW 14.6 H VBG O2 Saturation Mixed VBG pO2 BUN 41 H Estimated GFR 41 L POC Capillary Glucose 358 H 526 H* Calcium 8.1 L 10/25/16 10/25/16 10/25/16 17:21 14:15 13:44 MCHC RDW VBG O2 Saturation 94.8 H Mixed VBG pO2 73.5 H BUN Estimated GFR POC Capillary Glucose 171 H 147 H Calcium Current Medications: Current meds reviewed in EMR. - Problems: Assessment/Plan (1) Respiratory failure Qualifiers: Chronicity: acute Respiratory failure complication: hypoxia and hypercapnia Qualifier Code: (J96.01) Acute respiratory failure with hypoxia Status: AcuteAssessment/Plan: on Bi-Pap for several hours following admission, now on room air (2) COPD exacerbation Status: AcuteAssessment/Plan: with diffuse expiratory wheezing, 2-3 word sentences, now resolved. On room air and use of B-Pap overnight. Optimizing medications, steroids (3) COPD (chronic obstructive pulmonary disease) Qualifiers: COPD type: unspecified COPD Qualifier Code: (J44.9) Chronic obstructive pulmonary disease, unspecified Status: ChronicAssessment/Plan: with acute respiratory failure. Off Bi-Pap overnight but continued poor breath sounds Adding advair to home medications (4) CHF (congestive heart failure) Qualifiers: Congestive heart failure type: combined Congestive heart failure chronicity: acute on chronic Qualifier Code: (I50.43) Acute on chronic combined systolic (congestive) and diastolic (congestive) heart failure Status: SuspectedAssessment/Plan: monitor for fluid overload (5) CKD (chronic kidney disease), stage III Status: ChronicAssessment/Plan: bump in Cre overnight form 1.5 to 1.7, continue IVF and monitor (6) HTN (hypertension), benign Status: ChronicAssessment/Plan: stable (7) DM II (diabetes mellitus, type II), controlled Qualifiers: Diabetes mellitus complication status: with hyperglycemia Diabetes mellitus termite exterminator helper insulin use: without termite exterminator helper use Qualifier Code: ( E11.65) Type 2 diabetes mellitus with hyperglycemia Status: Chronic Assessment/Plan: erroneous blood glucose of 530 last night. Stable in the 100's. Diet controlled, meal coverage with sliding scale (8) Morbidly obese Qualifiers: Obesity type: due to excess calories Qualifier Code: (E66.01) Morbid ( severe) obesity due to excess calories Status: ChronicAssessment/Plan: BMI 39, complicates medical care
[2016-10-26] MEDS ORDERED: SODIUM CHLORIDE 0.9% FLUSH 10 ML ONE (08:11)
[2016-10-26] MEDS ORDERED: IV START KIT ONE (08:11)
[2016-10-26] MEDS: ALBUTEROL/IPRATROPIUM 2.5/0.5 MG 3 ML/EACH DOSE NEB SCH ×4 (08:24→20:42)
[2016-10-26] MEDS ORDERED: POTASSIUM CHLORIDE 8 MEQ TABLET.DR PO SCH (09:00)
[2016-10-26] MEDS ORDERED: MAGNESIUM SULFATE 2 G/50 ML 2 G in Premix (Water) 50 ml 1 EACH IV ONE (09:21)
[2016-10-26] MEDS: DOCUSATE SODIUM 100 MG CAPSULE PO SCH ×2 (09:26→21:27)
[2016-10-26] MEDS: FLUTICASONE/SALMETEROL 500/50 14 PUFFS/DISK IH SCH ×2 (09:26→21:28)
[2016-10-26] MEDS: PREDNISONE 20 MG TABLET PO SCH (09:26)
[2016-10-26] MEDS: FUROSEMIDE 20 MG TABLET PO SCH (09:27)
[2016-10-26] MEDS: AMLODIPINE BESYLATE 5 MG TABLET PO SCH (21:27)
[2016-10-27] MEDS: ALBUTEROL NEB 2.5 MG/3 ML VIAL.NEB NEB SCH ×5 (02:52→14:38)
[2016-10-27 07:10] LABS: HEMATOCRIT 47.8 % (32.0-52.0); HEMOGLOBIN 15.3 gm/l (14.0-18.0); MEAN CORPUSCULAR HEMOGLOBIN 27.5 pg (27.0-31.0); RED CELL DISTRIBUTION WIDTH 14.8 % (11.5-14.5)
[2016-10-27 07:29] LABS: CALCIUM 7.8 mg/dL (8.6-10.3); MAGNESIUM 1.9 mg/dL (1.9-2.7)
[2016-10-27 08:00] VITALS: BP 142/92
[2016-10-27] MEDS: ALBUTEROL/IPRATROPIUM 2.5/0.5 MG 3 ML/EACH DOSE NEB SCH ×2 (08:49→12:11)
[2016-10-27] MEDS: SODIUM CHLORIDE 0.9% 1,000 ML IV SCH (08:58)
[2016-10-27] MEDS: DOCUSATE SODIUM 100 MG CAPSULE PO SCH (08:58)
[2016-10-27] MEDS: FLUTICASONE/SALMETEROL 500/50 14 PUFFS/DISK IH SCH (09:04)
[2016-10-27] MEDS: FUROSEMIDE 20 MG TABLET PO SCH (09:04)
[2016-10-27] MEDS: PREDNISONE 20 MG TABLET PO SCH (09:04)
[2016-10-27] MEDS ORDERED: FLUTICASONE/SALMETEROL 500/50 14 PUFFS/DISK IH SCH (10:15)
[2016-10-27] MEDS ORDERED: LOSARTAN POTASSIUM 50 MG TABLET PO SCH (12:30)
[2016-10-27] MEDS ORDERED: ENOXAPARIN SODIUM 40 MG/0.4 ML SYRINGE SUB-Q SCH (12:30)
--- NOTE | 2016-10-27 12:44 | PDOC43 ---
- Subjective Chief Complaint: shortness of breath. Patient reports feeling well, eager for DC. No sputum produced. Reports tolerating activity well, eating ok. Would like meds for nebulizer at home. - Objective Vital Signs Temperature 97.4 F 10/27/16 07:59 Pulse Rate 101 10/27/16 08:49 Respiratory Rate 20 10/27/16 08:49 Blood Pressure 142/92 10/27/16 07:59 O2 Saturation by Pulse Oximetry 95 10/27/16 08:49 Oxygen Delivery Method Room Air Oxygen Flow Rate 0 Vital Signs Last 12 Hours Temp Pulse Resp BP Pulse Ox 10/27/16 08:49 101 20 95 10/27/16 07:59 97.4 F 100 22 142/92 90 10/27/16 07:30 22 10/27/16 05:26 106 20 92 10/27/16 02:00 98.4 F 97 18 138/85 92 10/27/16 01:00 20 Intake and Output 10/25/16 10/26/16 10/27/16 23:59 23:59 23:59 Intake Total 1324 4288 2239 Output Total 825 2675 1505 Balance 499 1613 734 General: Alert, Cooperative, No Acute Distress Lungs: Other (fair to poor air movement bilat. No crackling noted.) Cardiovascular: Regular Rate and Rhythm (difficult to auscultate) Abdomen: Soft, No Tenderness Extremities: Edema (trace, with venous stasis) Skin: Other (venous stasis legs) Neurological: Normal Speech Laboratory 10/27/16 07:00 10/27/16 07:00 10/27/16 10/27/16 10/26/16 11:07 07:00 21:13 MCHC 32.0 L RDW 14.8 H BUN 33 H Estimated GFR 56 L POC Capillary Glucose 121 H 291 H Calcium 7.8 L 10/26/16 16:31 MCHC RDW BUN Estimated GFR POC Capillary Glucose 138 H Calcium Current Medications: Current meds reviewed in EMR. Active Medications Acetaminophen (Tylenol) 650 mg PO Q6H PRN PRN Reason: Pain or Temperature > 100.5 F Last Admin: 10/25/16 14:34 Dose: 650 mg Albuterol Sulfate (Ventolin Inhalation Solution (Dose)) 2.5 mg NEB Q2H [facility] Last Admin: 04/24/17 12:12 Dose: Not Given Albuterol/Ipratropium (Duoneb) 3 ml NEB 08,12,16,20 [facility] Last Admin: 10/27/16 12:11 Dose: 3 ml Amlodipine Besylate (Norvasc) 5 mg PO QPM [facility] Last Admin: 10/26/16 21:27 Dose: 5 mg Benzocaine/Menthol (Cepacol) 1 each PO PRN PRN PRN Reason: Sore Throat Bisacodyl (Dulcolax) 10 mg [place] DAILY PRN PRN Reason: Constipation Bisacodyl (Dulcolax) 5 mg PO DAILY PRN PRN Reason: Constipation Docusate Sodium (Colace) 100 mg PO BID [facility] Last Admin: 10/27/16 08:58 Dose: Not Given Furosemide (Lasix) 20 mg PO DAILY [facility] Last Admin: 10/27/16 09:04 Dose: 20 mg Sodium Chloride (Sodium Chloride 0.9%) 100 mls @ 25 mls/hr IV PRN PRN PRN Reason: Flush Insulin Aspart (Novolog (Dose)) 0 units SUB-Q TIDWM PRN; Protocol PRN Reason: Blood Sugar > Last Admin: 10/25/16 19:17 Dose: 8 units Magnesium Hydroxide (Milk Of Magnesia) 30 ml PO DAILY PRN PRN Reason: Constipation Petrolatum/Paraffin/Mineral Oil (Blistex) 1 each TP PRN PRN PRN Reason: Dry and/or chapped lips Prednisone (Prednisone) 40 mg PO QAM [facility] Last Admin: 10/27/16 09:04 Dose: 40 mg Fluticasone/Salmeterol (Advair 500/50 Diskus) 1 puff IH BID [facility] Last Admin: 10/27/16 09:04 Dose: 1 puff Sodium Chloride (Normal Saline 10ml Flush) 10 ml IV Q8HR [facility] Last Admin: 10/27/16 09:03 Dose: 10 ml Sodium Chloride (Normal Saline 10ml Flush) 10 - 50 ml IV PRN PRN PRN Reason: IV Flush - Problems: Assessment/Plan (1) COPD exacerbation Status: AcuteAssessment/Plan: WBC up some due to steroids. On Prednisone 40 mg qd, with diffuse expiratory wheezing, improved, pt eager for DC. On room air and use of B-Pap overnight. Optimizing medications, steroids (2) Knee effusion Qualifiers: Laterality: unspecified laterality Qualifier Code: (M25.469) Effusion, unspecified knee Status: AcuteAssessment/Plan: Not addressed today. (3) CKD (chronic kidney disease), stage III Status: ChronicAssessment/Plan: Creatinine 1.5->1.7->1.3, improved with IVF. (4) DM II (diabetes mellitus, type II), controlled Qualifiers: Diabetes mellitus complication status: with hyperglycemia Diabetes mellitus intermediate teacher insulin use: without intermediate teacher use Qualifier Code: ( E11.65) Type 2 diabetes mellitus with hyperglycemia Status: Chronic Assessment/Plan: Blood sugars generally Diet controlled, meal coverage with sliding scale, anticipate going sl high with prednisone, but will be tapering. Laboratory Tests 09/02/16 09/03/16 10/26/16 15:05 05:30 11:25 Glucose POC Capillary Glucose 171 H Creatine Kinase 86 CK-MB (CK-2) 9.0 H Troponin I 0.07 H B-Natriuretic Peptide 572 H 10/26/16 10/26/16 10/27/16 16:31 21:13 07:00 Glucose 98 POC Capillary Glucose 138 H 291 H Creatine Kinase CK-MB (CK-2) Troponin I B-Natriuretic Peptide 10/27/16 10/27/16 07:11 11:07 Glucose POC Capillary Glucose 93 121 H Creatine Kinase CK-MB (CK-2) Troponin I B-Natriuretic Peptide (5) HTN (hypertension), benign Status: ChronicAssessment/Plan: stable, on amlodipine. Could consider cautious addition of losartan for BP control and renal protection, monitor Cr. VTE Prophylaxis: ambulate, anticipate DC to home today. Disposition: Anticipate DC to home today.
--- NOTE | 2016-10-27 19:12 | DS ---
JOSE ANDERS [id number] DATE OF ADMISSION: October 25, 2016 DATE OF DISCHARGE: October 27, 2016 DISCHARGE DIAGNOSES: Are: 1. Acute exacerbation of chronic obstructive pulmonary disease with good response to nebulizers and steroids. 2. Chronic essential hypertension. 3. Adult onset diabetes with diet control but modest worsening with prednisone. 4. Smoking. 5. History of peripheral neuropathy with trial of amitriptyline while in the hospital. 6. Acute kidney injury. 7. History of decreased ejection fraction of 40%, mild to moderate mitral valve regurgitation, elevated right ventricular systolic pressure, grade 2 diastolic dysfunction on September 09, 2015. REASON FOR ADMISSION: The patient is a 61-year-old male with a 40 pack-year history of smoking who was noted to have increasing shortness of breath and cough over the previous two or three days but without sputum production. In the emergency room he was noted to be tachypneic and tachycardic, and was given nebulizer treatments and some steroids. He developed some diaphoresis, increased tachypnea and was placed on BiPAP. With this he had good improvement and his breathing improved. He was referred to the hospitalist service for ongoing chronic obstructive pulmonary disease exacerbation treatment. Admission labs showed a white blood cell count of 8.9, hemoglobin 16.7, platelets 232. His initial venous blood gas showed a pH of 7.265, PCO2 of 62.6, PO2 of 36.4, bicarbonate 27.8, but a followup after the BiPAP showed improvement in the pH to 7.352, saturations of 98.4%, PCO2 decreased to 45.3, PO2 improved to 73.5 and bicarbonate improved to 24.6. His chemistry profile on admission showed a sodium 135, potassium 4.8, BUN 26, creatinine 1.5, glucose 104. Liver enzymes were unremarkable. Troponin 0.06, BNP of 35, albumin 3.7, globulin 4.0, and his imaging showed a chest x-ray with stable borderline cardiomegaly with mild central vascular prominence. Patient was treated with prednisone and nebulizer treatments. He graduated from BiPAP and also received 2 g of magnesium with some good improvement. By October 27, 2016, he was feeling much better and eager for discharge. His labs show an increase in his creatinine going from 1.5 on admission to 1.7 on October 26, 2016 but improved to 1.3 by October 27, 2016. His white blood cell count did increase from 8.9 on admission to 17.7 but this is attributed to steroids. His glucose varied but generally was fairly well controlled and had a 93 and 121 on the day of discharge. The readings done here include a 526 but that was felt to be in error. By October 27, 2016 he was eager for discharge. DISPOSITION: He is anticipated to be discharged to home. DISCHARGE MEDICATIONS: Will be: 1. Albuterol Ventolin nebulizer solution. Prescription given, every two hours as needed. 2. ProAir metered dose inhaler as needed. 3. DuoNeb 3 mL nebulized four times a day. 4. Amlodipine 5 mg orally at night. 5. Aspirin 81 mg daily. 6. Advair 500/50 one puff inhaled twice daily. Rinse mouth afterwards. 7. Furosemide 20 mg orally daily. 8. Combivent Respimat one puff inhaled four times daily. 9. Cozaar 25 mg daily started. 10. Prednisone with a taper going 40 mg for three days, 30 mg for three days, 20 mg for three days, 10 mg for six days and then 5 mg for six days and then stop. FOLLOW UP: He is to follow up with Alexandra Dutton on November 07, 2016 at 2:55 p.m. and to seek medical attention if having worsening respiratory status or marked elevated blood sugars or other concerns. CONDITION ON DISCHARGE: Is much improved but still with chronic poor air movement. He is strongly encouraged to not smoke. Job [id number] Cc: Alexandra Dutton N.P.
== END 2016-10-27 14:45 | disposition home or self-care (01) | DRG 190 ==
LOC: ED 08:33 → ICU 11:28 → MS 10-26 10:23
PROVIDERS: ADMIT Family Medicine; ATTEND Family Medicine
DX: J44.1 Chronic obstructive pulmonary disease with (acute) exacerbation (principal); J96.02 Acute respiratory failure with hypercapnia; J96.01 Acute respiratory failure with hypoxia; I50.43 Acute on chronic combined systolic (congestive) and diastolic (congestive) heart failure; N17.9 Acute kidney failure, unspecified; I13.0 Hypertensive heart and chronic kidney disease with heart failure and stage 1 through stage 4 chronic kidney disease, or unspecified chronic kidney disease; F17.210 Nicotine dependence, cigarettes, uncomplicated; E11.42 Type 2 diabetes mellitus with diabetic polyneuropathy; I34.0 Nonrheumatic mitral (valve) insufficiency; N18.3 Chronic kidney disease, stage 3 (moderate); Z68.39 Body mass index [BMI] 39.0-39.9, adult; E66.01 Morbid (severe) obesity due to excess calories